=== PATIENT | male | born 1985 | race Two or more races ===

== ENCOUNTER 2022-10-30 05:42 | Emergency (ER) | payer BC ==
[~2022-10-30] VITALS: Ht 172.7 cm; Wt 130.6 kg
--- NOTE | 2022-10-30 06:20 | NUR ---
BIBS FROM HOME C/O OF BACK PAIN AT 0130HRS, THEN BECAME RUQ PAIN RAD TO BACK. PT IS A/O X 4, VSS. WILL CONTINUE TO MONITOR.
--- NOTE | 2022-10-30 06:28 | NUR ---
labor and delivery registered nurse at bedside for blood draw
[2022-10-30] MEDS ORDERED: IV NS 0.9% 1,000 ML BAG IV ONE (06:30)
[2022-10-30] MEDS ORDERED: LIDOCAINE VISCOUS 2% UD 15 ML UDC MM ONE (06:30)
[2022-10-30] MEDS ORDERED: ONDANSETRON HCL/PF 4 MG/2 ML VIAL IVP ONE (06:30)
[2022-10-30] MEDS ORDERED: MAG HYDROX/AL HYDROX/SIMETH 30 ML UDC PO ONE (06:30)
[2022-10-30] MEDS ORDERED: FAMOTIDINE/PF INJ 20 MG/2 ML VIAL IV ONE ×2 (06:30→06:47)
[2022-10-30] MEDS ORDERED: MAG HYDROX/AL HYDROX/SIMETH 30 ML UDC ONE (06:36)
[2022-10-30] MEDS ORDERED: LIDOCAINE VISCOUS 2% UD 15 ML UDC ONE (06:36)
[2022-10-30] MEDS ORDERED: ONDANSETRON HCL/PF 4 MG/2 ML VIAL ONE (06:47)
--- NOTE | 2022-10-30 06:54 | NUR ---
IV line established at R hand 20g
[2022-10-30 07:10] LABS: BASOPHILS % (AUTO) 0.2 % (0.0-2.0); EOSINOPHILS % (AUTO) 0.2 % (0.0-6.0); HEMATOCRIT 45 % (39-51); HEMOGLOBIN 15.1 g/dL (13.5-17.5); LYMPHOCYTES # (AUTO) 1.4 K/uL (0.8-4.8); LYMPHOCYTES % (AUTO) 12.2 % (20.0-44.0); MEAN CORPUSCULAR HGB CONC 33 g/dl (31.0-36.0); MEAN CORPUSCULAR VOLUME 86 fL (80-96); MONOCYTES # (AUTO) 0.7 K/uL (0.1-1.30); MONOCYTES % (AUTO) 5.8 % (2.0-12.0); NEUTROPHILS # (AUTO) 9.2 K/uL (1.8-8.9); NEUTROPHILS % (AUTO) 81.6 % (43.0-81.0); PLATELET COUNT (AUTO) 191 K/uL (150-450); RED BLOOD CELL COUNT(AUTO) 5.28 MIL/uL (4.5-6.0); WHITE BLOOD COUNT (AUTO) 11.2 K/uL (4.3-11.0)
--- NOTE | 2022-10-30 07:15 | NUR ---
RECEVED PT FROM ИВАН RN pt awake and alert no abdominal pain at this time
--- NOTE | 2022-10-30 07:26 | NUR ---
URINE COLLECTED AND SENT TO LAB.
[2022-10-30 07:28] LABS: CALCIUM, SERUM 9.1 mg/dL (8.5-10.1)
--- NOTE | 2022-10-30 07:31 | NUR ---
NO KNOWN ALLERGIES PER PT. PT A/O X4, AWAKE AND VERBALLY RESPONSIVE, NOT IN ACUTE DISTRESS.
[2022-10-30 07:33] LABS: ALBUMIN 3.9 g/dL (3.4-5.0); BILIRUBIN,DIRECT 0.1 mg/dL (0.0-0.2); BILIRUBIN,TOTAL 0.3 mg/dL (0.2-1.0); TOTAL PROTEIN, SERUM 8.7 g/dL (6.4-8.2)
[2022-10-30 07:55] LABS: BILIRUBIN,URINE NEGATIVE (NEGATIVE); COLOR,URINE YELLOW (YELLOW); LEUKOCYTE ESTERASE ,URINE NEGATIVE (NEGATIVE); NITRITE, URINE NEGATIVE (NEGATIVE); PROTEIN,URINE NEGATIVE (NEGATIVE); UGLUCOSE NEGATIVE (NEGATIVE); UROBILINOGEN,URINE 0.2 EU/dL (0.2)
[2022-10-30 07:57] LABS: BACTERIA,URINE Rare /HPF (None Seen); RBC,URINE 0-2 /HPF (0-2); SQUAMOUS EPITHELIAL CELL,UR Few /HPF (None Seen); WBC,URINE 0-2 /HPF (0-3)
--- NOTE | 2022-10-30 08:00 | NUR ---
Abdominal US DONE AT BED SIDE
[2022-10-30] MEDS ORDERED: FAMO-131 PO (08:20)
[2022-10-30] MEDS ORDERED: ONDA4TAB5 PO (08:20)
--- NOTE | 2022-10-30 08:30 | NUR ---
DINESES ABdominal pain
--- NOTE | 2022-10-30 09:00 | NUR ---
IV removed. Catheter intact and site benign. Pressure and 4x4 applied to site. No bleeding noted.
--- NOTE | 2022-10-30 09:05 | NUR ---
Patient discharged to home in stable condition. Written and verbal after care instructions given. Patient verbalizes understanding of instruction.
[2022-10-30 09:13] VITALS: BP 144/92
== END 2022-10-30 09:14 | disposition home or self-care (01) ==
LOC: ER 05:44
DX: K80.70 Calculus of gallbladder and bile duct without cholecystitis without obstruction (principal); R10.13 Epigastric pain; R10.11 Right upper quadrant pain; R11.2 Nausea with vomiting, unspecified; Z79.899 Other long term (current) drug therapy
CPT/HCPCS: 99285; 96374; 76705; 96361; 96375; 85025; 80048; 83690; 80076; 81001; 36415; J3490; J2405; J7030